=== PATIENT | female | born 1950 | race Caucasian/White ===

== ENCOUNTER → 2022-09-06 | Outpatient (CLI) | payer MEDICARE ==
[2022-09-06 10:34] LABS: African American GFR (CKD) 87 (>60 ml/min/1.73 sqM); Blood Urea Nitrogen 16 mg/dL (7-17); Non-African American GFR(CKD) 75 (>60 ml/min/1.73 sqM)
--- NOTE | 2022-09-06 13:58 | CT ---
EXAMINATION TYPE: CT abdomen pelvis w con DATE OF EXAM: 09/06/2022 COMPARISON: NONE HISTORY: 72-year-old female R10.32, LLQ pain TECHNIQUE: Contiguous axial scanning of the abdomen and pelvis following administration of 100 ml Iso manjeet 300 IV contrast. Delayed images through the kidneys and coronal/sagittal reconstructions perform ed. CT DLP: 669.8 mGycm Automated exposure control for dose reduction was used. FINDINGS: LUNG BASES: Heart upper limits of normal in size without pericardial effusion. Some strandy atelectas is in the lower lungs. No pleural effusion. There is a 6 mm right middle lobe pulmonary nodule that s hould be reassessed at a three-month follow-up CT chest. LIVER/GB: Present 2.5 cm round cyst posterior right liver lobe. Additional 1.7 cm cyst left hepatic d ome. Portal venous system is patent. No biliary ductal dilatation. Gallbladder unremarkable. PANCREAS: No significant abnormality is seen. SPLEEN: No significant abnormality is seen. ADRENALS: No significant abnormality is seen. KIDNEYS: No significant abnormality is seen. BOWEL: Unable to clearly identify the appendix. No secondary findings of acute appendicitis in the ri ght lower quadrant. Moderate stool burden. Mid sigmoid diverticulosis. No pericolonic inflammatory ch eulalia. LYMPH NODES: No significant abnormality is seen. OTHER: No significant abnormality is seen. PELVIS: Bladder partially distended. Uterus is anteverted. Bilateral adnexal cystic structures measur ing 3.8 cm on the left and 3.6 cm on the right. Suspect ovarian etiology. Otherwise, no abnormal flui d collection the pelvis or pelvic lymphadenopathy. BONES: Hypertrophic facet arthropathy mid to lower lumbar spine with grade 1 anterolisthesis L3-L4. M oderate degenerative disc disease lower lumbar spine. Mild degenerative change both hips. IMPRESSION: 1. A 6 MM RIGHT MIDDLE LOBE PULMONARY NODULE. RECOMMEND FOLLOW-UP CT CHEST IN 3 MONTHS TO REASSESS AN D ALSO TO SURVEY THE REMAINDER OF THE LUNGS. 2. MODERATE STOOL BURDEN. MID SIGMOID DIVERTICULOSIS WITHOUT EVIDENCE FOR ACUTE DIVERTICULITIS. 3. CYSTIC STRUCTURE WITHIN BILATERAL ADNEXA MEASURING UP TO 3.8 CM. OVARIAN ETIOLOGY SUSPECTED, SUCH CYSTIC EPITHELIAL OVARIAN NEOPLASMS. RECOMMEND [facility] SPECIALIST REFERRAL AND FOLLOW-UP PELVIC ULTRASOUND TO ATTEMPT FURTHER CHARACTERIZATION.
== END | disposition home or self-care (01) ==
LOC: RADCTMAIN 09:56
PROVIDERS: ATTEND Family Medicine
DX: K57.30 Diverticulosis of large intestine without perforation or abscess without bleeding (principal); N83.292 Other ovarian cyst, left side; N83.291 Other ovarian cyst, right side; R91.1 Solitary pulmonary nodule
CPT/HCPCS: 82565; 84520; 74177; 36415; Q9967

== ENCOUNTER → 2022-10-17 | Outpatient (CLI) | payer MEDICARE ==
--- NOTE | 2022-10-17 09:40 | US ---
EXAMINATION TYPE: US pelvis complete transvag DATE OF EXAM: 10/17/2022 COMPARISON: CT 09/06/2022 CLINICAL INDICATION: Female, 72 years old with history of R19.09 INTRA ABDOMINAL AND PELVIC SWELLING; Mass of ovary per order. Adnexal lesions seen on CT. Hx endometriosis surgery. Hx 1 C section. . TECHNIQUE: Transvaginal (TV) and Transabdominal (TA) . Transabdominal sonographic images of the pel vis were acquired. Transvaginal sonographic images were medically necessary to better assess the fol lowing anatomy: Endometrium Date of LMP: In her 60s EXAM MEASUREMENTS: Uterus: 5.7 x 4.0 x 2.6 cm Endometrial Stripe: 0.37 cm Right ovary and left ovary not definitely seen. 1. Uterus: Anteverted Very heterogeneous. Calcifications seen, largest: 0.2 x 0.2 x 0.2 cm. 2. Endometrium: 0.37 cm Anechoic fluid seen within endo: 1.0 x 1.3 x 0.3 cm 3. Right Ovary: Not definitely seen 4. Left Ovary: Not definitely seen 5. Bilateral Adnexa: Complex areas seen within bilateral adnexa, these could resemble both ovaries. Right adnexal complex area: 3.4 x 3.7 x 2.4 cm. Septated anechoic area noted within= 3.2 x 3.2 x 2.5 cm. Left adnexal complex area: 4.0 x 2.7 x 2.2 cm. Anechoic area within= 3.5 x 2.5 x 1.9 cm. Left right a dnexal cyst and not the homogenous refill for chocolate cysts or endometriosis. Complex septated cyst s warrent close follow-up. Neoplasm not excluded this time. Consider correlation with laboratory resu lts. 6. Posterior cul-de-sac: wnl IMPRESSION: 1. Heterogenous appearance to the uterus with calcification. Findings likely related to calcified fib roids. 2. Small amount of fluid within the endometrial canal. 3. Complex adnexal cysts. Nontypical appearance for endometriosis type cysts. Follow-up in 6 weeks re commended.
== END | disposition home or self-care (01) ==
LOC: RADUSWWP 08:39
PROVIDERS: ATTEND Family Medicine
DX: N85.8 Other specified noninflammatory disorders of uterus (principal); N83.292 Other ovarian cyst, left side; N83.291 Other ovarian cyst, right side; R19.09 Other intra-abdominal and pelvic swelling, mass and lump
CPT/HCPCS: 76830; 76856

== ENCOUNTER → 2022-11-11 | Outpatient (CLI) | payer MEDICARE ==
--- NOTE | 2022-11-14 10:00 | MM ---
Reason for Exam: Screening (asymptomatic). Last mammogram was performed 21 year(s) and 7 month(s) ago. Patient History: Menarche at age 14. First Full-Term at age 24. Postmenopausal. Risk Values: Rose 5 year model risk: 1.5%. NCI Lifetime model risk: 4.5%. Prior Study Comparison: 04/25/2001 Bilateral Screening Mammogram, [place]. 05/02/2001 Left Special View Mammogram, [place]. 10/09/2001 Left Diagnostic Mammogram, [place]. Tissue Density: The breast tissue is almost entirely fat. Findings: Analyzed By CAD. There is no suspicious group of microcalcifications or new suspicious mass. Overall Assessment: Negative, BI-RAD 1 Management: Screening Mammogram of both breasts in [address] [facility] will attempt to contact patient to return for supplemental views and ultrasound if indicated. Patient should continue monthly self-breast exams. A clinical breast exam by your physician is recommended on an annual basis. This exam should not preclude additional follow-up of suspicious palpable abnormalities. Note on Rose scores and lifetime risk: 1. A Rose score greater than 3% is considered moderate risk. If this is the case, consider specialist referral to assess eligibility for a risk reducing agent. 2. If overall lifetime risk for the development of breast cancer is 20% or higher, the patient may qualify for future screening with alternating mammogram and breast MRI. Electronically signed and approved by: Marquis Mandel DO
== END | disposition home or self-care (01) ==
LOC: RADMAMWWP 09:36
PROVIDERS: ATTEND Family Medicine
DX: Z12.31 Encounter for screening mammogram for malignant neoplasm of breast (principal); Z78.0 Asymptomatic menopausal state
CPT/HCPCS: 77063; 77067

== ENCOUNTER → 2023-10-09 | Outpatient (CLI) | payer MEDICARE | END | disposition home or self-care (01) | LOC: LABPRL 12:10 | PROVIDERS: ATTEND Family Medicine | DX: N17.9 Acute kidney failure, unspecified (principal) | CPT/HCPCS: 80048; 80061; 85025 ==